=== PATIENT | male | born 1985 | race Caucasian/White ===

== ENCOUNTER 2017-03-24 10:40 | Observation (INO) | payer OTHER ==
[2017-03-24 11:04] VITALS: BMI 27.5
--- NOTE | 2017-03-24 11:31 | PDOC ---
History of Present Illness - General History Source: Patient Exam Limitations: No Limitations - History of Present Illness Initial Comments: 03/24/17 15:07 The patient is a 31 year old male, with no significant past medical history, who presents to the emergency department complaining of right arm swelling and pain for approximately 1 week. The patient reports his pain was initially localized at his right wrist up to his right forearm and it began to swell He reports presenting to Urgent Care earlier today, where he received a CXR, which was negative. Patient reports he was prescribed amoxicillin and 800 mg ibuprofen which mildly relieved his pain. The patient denies any associated erythema, fever, chills, neck or back pain He denies any numbness, tingling, neck pain, back pain. He denies any chest pain, shortness of breath, diaphoresis , or palpitations. 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 Allergies: None reported Past Surgical History: None reported Social History: Marijuana. Denies IV drug use. <Ginger Ortega - Last Filed: 03/24/17 15:07> <Yosef Sutton - Last Filed: 03/24/17 19:52> - General Chief Complaint: Edema Stated Complaint: SWELLING TO LT UPPER LIMB (REFERRED) Time Seen by Provider: 03/24/17 11:09 Past History <Ginger Ortega - Last Filed: 03/24/17 15:07> - Past Medical History Other medical history: NONE - Psycho/Social/Smoking Cessation Hx Anxiety: No Suicidal Ideation: No Smoking History: Current every day smoker Have you smoked in the past 12 months: Yes Number of Cigarettes Smoked Daily: 10 Information on smoking cessation initiated: Yes 'Breaking Loose' booklet given: 03/24/17 Hx Alcohol Use: No Drug/Substance Use Hx: No Substance Use Type: None <Yosef Sutton - Last Filed: 03/24/17 19:52> - Past Medical History Allergies/Adverse Reactions: Allergies Allergy/AdvReac Type Severity Reaction Status Date / Time No Known Allergies Allergy Verified 03/24/17 10:59 Home Medications: Ambulatory Orders Apixaban [Eliquis -] 5 mg PO BID #44 tablet 03/24/17 Review of Systems - Review of Systems Able to Perform ROS?: Yes Comments:: 03/24/17 15:08 CONSTITUTIONAL: No reported: Fever, Chills, Diaphoresis, Generalized Weakness, Malaise, Loss of Appetite HEENT: No reported: Rhinorrhea, Nasal Congestion, Throat Pain, Throat Swelling, Difficulty Swallowing, Mouth Swelling, Ear Pain, Eye Pain, Visual Changes CARDIOVASCULAR: No reported: Chest Pain, Syncope, Palpitations, Irregular Heart Rate, Lightheadedness, Peripheral Edema RESPIRATORY: No reported: Cough, Shortness of Breath, SOB with Exertion, Orthopnea, Wheezing , Stridor, Hemoptysis GASTROINTESTINAL: No reported: Abdominal pain, Abdominal Distension, Nausea, Vomiting, Diarrhea, Constipation, Melena, Hematochezia GENITOURINARY: No reported: Dysuria, Frequency, Urgency, Hesitancy, Flank Pain, Genital Pain MUSCULOSKELETAL: Present: +right arm swelling, +right arm pain No reported: Myalgia, Arthralgia, Joint Swelling, Back pain, Neck Pain SKIN: No reported: Rash, Itching, Pallor HEMEATOLOGIC/IMMUNOLOGIC: No reported: Easy Bleeding, Easy Bruising, Lymphadenopathy, Frequent infections ENDOCRINE: No reported: Unexplained Weight Gain, Unexplained Weight Loss, Heat Intolerance , Cold Intolerance NEUROLOGIC: No reported: Headache, Focal Weakness, Paresthesias, Vertigo, Lightheadedness, Unsteady Gait, Seizure, Mental Status Changes, Incontinence PSYCHIATRIC: No reported: Anxiety, Depression <Ginger Ortega - Last Filed: 03/24/17 15:07> *Physical Exam - Vital Signs Last Vital Signs Temp Pulse Resp BP Pulse Ox 98.2 F 66 18 118/69 100 03/24/17 11:01 03/24/17 11:01 03/24/17 11:01 03/24/17 11:01 03/24/17 11:01 - Physical Exam Comments: 03/24/17 15:08 GENERAL: The patient is awake, alert, and fully oriented, Nontoxic - in no acute distress. HEAD: Normocephalic, atraumatic. EYES: extraocular movements intact, sclera anicteric, conjunctiva clear. ENT: Normal voice, Moist mucous membranes. NECK: Normal range of motion, supple LUNGS: Breath sounds equal, clear to auscultation bilaterally. No wheezes, no rhonchi, no rales. HEART: Regular rate and rhythm, normal S1 and S2 without murmur, rub or gallop. ABDOMEN: Soft, nontender, normoactive bowel sounds. No guarding, no rebound. . No CVA tenderness EXTREMITIES: induration/pitting edmea of RUE from elbow to proximal hand, no redness/warmth, no focal tenderness, n/v intact, no skin wounds/breakdown noted. NEUROLOGICAL: No facial assymetry, Normal speech, moving all 4 extremities spontneously and symmetrically PSYCH: Normal mood, normal affect. SKIN: Warm, Dry, normal turgor. <OrtegaGiomilsy - Last Filed: 03/24/17 15:07> - Vital Signs Last Vital Signs Temp Pulse Resp BP Pulse Ox 98.2 F 66 18 118/69 100 03/24/17 11:01 03/24/17 11:01 03/24/17 11:01 03/24/17 11:01 03/24/17 11:01 <Yosef Sutton - Last Filed: 03/24/17 19:52> Heart Score/ECG Review - ECG Impressions Comment:: 03/24/17 19:51 rate of 47 normal axis normal intervals no st changes suggestive of ischemia sinus bradycardia <Yosef Sutton - Last Filed: 03/24/17 19:52> ED Treatment Course - LABORATORY CBC & Chemistry Diagram: 03/24/17 11:57 03/24/17 12:20 - ADDITIONAL ORDERS Additional order review: Laboratory Results 03/24/17 12:20 Sodium 140 Potassium 5.1 Chloride 106 Carbon Dioxide 28 Anion Gap 6 L BUN 13 Creatinine 0.8 Creat Clearance w eGFR > 60 Random Glucose 91 Calcium 9.2 Total Bilirubin 0.4 AST 23 ALT 21 Alkaline Phosphatase 59 Total Protein 7.6 Albumin 3.7 03/24/17 11:57 RBC 5.00 MCV 95.6 MCHC 33.3 RDW 13.1 MPV 8.9 Neutrophils % 66.1 Lymphocytes % 20.5 Monocytes % 11.1 H Eosinophils % 1.7 Basophils % 0.6 - RADIOLOGY Radiology Studies Ordered: 03/24/17 15:09 EXAM: Duplex vascular US right arm INTERPRETED BY: Dr. Euceda REVIEWED BY: Dr. Sutton IMPRESSION: There is extensive DVT within the right upper extremity. No flow is identified within the axillary and brachial veins. Flow is noted within the internal jugular, subclavian, radial and ulnar veins. Thrombus is also identified within the basilic and cephalic veins. <Ginger Ortega - Last Filed: 03/24/17 15:07> - LABORATORY CBC & Chemistry Diagram: 03/24/17 11:57 03/24/17 12:20 <Yosef Sutton - Last Filed: 03/24/17 19:52> Medical Decision Making - Medical Decision Making 03/24/17 11:58 31y M no pmhx presents with RUE swelling x 1 week without associated numbness/ tingling/weakness/fevers/warmth. 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 pt denies any neck pain/back pain. pt endorses mild pain to the medial elbow region. will obtain basic blood work US to r/o dvt no signs of warmth/erythema/induration to suggest celluitis pt has rx for augmentin by md at urgent care [facility] A portion of this note was documented by scribe services under my direction. I have reviewed the details of the note, within reason, and agree with the documentation with the following case summary and management plan written by me 03/24/17 15:06 pts US noted for DVT unclear cause of his DVT pt states his family is fairly healthy and as far as he k nows ho history of dvt will obtain pt/inr, will give lovenox pt has no PMD, will admit pt for hypercoagulable workup and to start a/c 03/24/17 15:58 case dw BRAND INSPECTOR Smith agree with admission for further management under dr. Fletcher service stable for med surg Case discussed in detail with admitting physician including history, physical exam and ancillary studies. Admitting physician has assumed care for the patient, will follow all pending diagnostics and will complete the evaluation and treatment. <Yosef Sutton - Last Filed: 03/24/17 19:52> *DC/Admit/Observation/Transfer - Attestations Scribe Attestion: 03/24/17 15:08 Documentation prepared by Ginger Ortega, acting as medical insurance verifier for Yosef Sutton MD. <Ginger Ortega - Last Filed: 03/24/17 15:07> - Discharge Dispostion Admit: Yes <Yosef Sutton - Last Filed: 03/24/17 19:52> Diagnosis at time of Disposition: DVT of axillary vein, acute right - Discharge Dispostion Condition at time of disposition: Stable - Prescriptions - Referrals
[2017-03-24 12:17] LABS: BASOPHIL 0.6 % (0-2.0); EOSINOPHIL 1.7 % (0-4.5); MCH 31.8 pg (25.7-33.7); MCHC 33.3 g/dl (32.0-35.9); MEAN CELL VOLUME 95.6 fl (80-96); MEAN PLT VOLUME 8.9 fl (7.5-11.1); NEUTROPHILS 66.1 % (42.8-82.8); PLATELET COUNT 179 K/MM3 (134-434); RDW 13.1 % (11.9-15.9); WHITE BLOOD COUNT 5.6 K/mm3 (4.0-10.0)
[2017-03-24 12:35] LABS: ALBUMIN 3.7 g/dl (3.4-5.0); ALK PHOS 59 U/L (45-117); ANION GAP 6 (8-16); BILIRUBIN,TOTAL 0.4 mg/dL (0.2-1.0); CALCIUM 9.2 mg/dL (8.5-10.1); CO2 28 mmol/L (21-32); CREATININE 0.8 mg/dL (0.7-1.3); GLUCOSE,RANDOM 91 mg/dL (74-106); SGPT/ALT 21 U/L (12-78); TOT PROT 7.6 g/dl (6.4-8.2)
[2017-03-24 12:37] LABS: SGOT/AST 23 U/L (15-37)
[2017-03-24] MEDS ORDERED: ENOXAPARIN NA (PORCINE) 80 MG/0.8 ML DISP.SYRIN SQ SCH ×2 (15:00→15:09)
[2017-03-24] MEDS ORDERED: ENOXAPARIN NA (PORCINE) 80 MG/0.8 ML DISP.SYRIN SQ ONE (15:09)
[2017-03-24] MEDS ORDERED: ENOXAPARIN NA (PORCINE) 100 MG/1 ML DISP.SYRIN SQ ONE ×2 (15:20→15:22)
[2017-03-24 15:41] VITALS: TEMP 98.6
[2017-03-24 16:12] LABS: INR 1.12 (0.82-1.09); PROTHROMBIN TIME (PATIENT) 12.4 SEC (9.98-11.88)
[2017-03-24 16:14] LABS: ACTIVATED PTT 32.2 SECONDS (26.9-34.4)
--- NOTE | 2017-03-24 17:09 | HP ---
CHIEF COMPLAINT: RUE pain and swelling PCP:none HISTORY OF PRESENT ILLNESS: 31yo M c/o RUE pain and swelling x1week. progressively worsening and now it is difficult to move the arm due to the pain. went to urgent care center on Monday and was given amoxicillin and motrin. did not improve so returned to urgent care center where they did CXR which was negative (had report with him) and then he came here. pt denies any trauma to the arm, denies any flights, family history of DVT/PE/CVA. ER course was notable for: (1)lovenox 90mcg (2)duplex-extensive DVT within the right upper extremity. No flow is identified within the axillary and brachial veins. Flow is noted within the internal jugular, subclavian, radial and ulnar veins. Thrombus is also identified within the basilic and cephalic veins. (3) Recent Travel:none PAST MEDICAL HISTORY:none PAST SURGICAL HISTORY:ingunal hernia repair as a child? Social History: Smoking:denies Alcohol:denies Drugs: THC occasionally Family History:denies Allergies No Known Allergies Allergy (Verified 03/24/17 10:59) HOME MEDICATIONS: Home Medications Medication Instructions Recorded Apixaban [Eliquis -] 5 mg PO BID #44 tablet 03/24/17 REVIEW OF SYSTEMS CONSTITUTIONAL: Absent: fever, chills, diaphoresis, generalized weakness, malaise, loss of appetite, weight change HEENT: Absent: rhinorrhea, nasal congestion, throat pain, throat swelling, difficulty swallowing, mouth swelling, ear pain, eye pain, visual changes CARDIOVASCULAR: Absent: chest pain, syncope, palpitations, irregular heart rate, lightheadedness , peripheral edema RESPIRATORY: Absent: cough, shortness of breath, dyspnea with exertion, orthopnea, wheezing, stridor, hemoptysis GASTROINTESTINAL: Absent: abdominal pain, abdominal distension, nausea, vomiting, diarrhea, constipation, melena, hematochezia GENITOURINARY: Absent: dysuria, frequency, urgency, hesitancy, hematuria, flank pain, genital pain MUSCULOSKELETAL: +RUE pain and swelling Absent: myalgia, arthralgia, joint swelling, back pain, neck pain SKIN: Absent: rash, itching, pallor HEMATOLOGIC/IMMUNOLOGIC: Absent: easy bleeding, easy bruising, lymphadenopathy, frequent infections ENDOCRINE: Absent: unexplained weight gain, unexplained weight loss, heat intolerance, cold intolerance NEUROLOGIC: Absent: headache, focal weakness or paresthesias, dizziness, unsteady gait, seizure, mental status changes, bladder or bowel incontinence PSYCHIATRIC: Absent: anxiety, depression, suicidal or homicidal ideation, hallucinations. PHYSICAL EXAMINATION GENERAL: Awake, alert, and fully oriented, in no acute distress. HEAD: Normal with no signs of trauma. EYES: Pupils equal, round and reactive to light, extraocular movements intact, sclera anicteric, conjunctiva clear. No lid lag. EARS, NOSE, THROAT: Ears normal, nares patent, oropharynx clear without exudates. Moist mucous membranes. NECK: Normal range of motion, supple without lymphadenopathy, JVD, or masses. LUNGS: Breath sounds equal, clear to auscultation bilaterally. No wheezes, and no crackles. No accessory muscle use. HEART: Regular rate and rhythm, normal S1 and S2 without murmur, rub or gallop. ABDOMEN: Soft, nontender, not distended, normoactive bowel sounds, no guarding, no rebound, no masses. No hepatomegaly or splenomegaly. MUSCULOSKELETAL: Normal range of motion at all joints. No bony deformities or tenderness. No CVA tenderness. UPPER EXTREMITIES: 2+ pulses, warm, well-perfused. No cyanosis. No clubbing. RUE swelling from elbow to dorsum of hand assoc with tenderness. full ROM of digits, limited supination/pronation due to pain. pulse intact LOWER EXTREMITIES: 2+ pulses, warm, well-perfused. No calf tenderness. No peripheral edema. NEUROLOGICAL: Cranial nerves II-XII intact. Normal speech. Normal gait. PSYCHIATRIC: Cooperative. Good eye contact. Appropriate mood and affect. SKIN: Warm, dry, normal turgor, no rashes or lesions noted, normal capillary refill. ASSESSMENT/PLAN: 31yo M with no PMH presented to the ER with RUE swelling and pain 1. RUE DVT- received lovenox 90mg x1 in the ER. will start on eliquis 10mg po bid x7 days then 5mg po bid. explained in detail with Yemeni lockstitch cup setter the importance to take medication as instruction. risks as this increases risk for bleeding. to avoid ETOH, avoid NSAIDS. importance of following up with PMD for further hypercoagability workup. pt requested referral to Yemeni speaking physician. Visit type - Emergency Visit Emergency Visit: Yes ED Registration Date: 03/24/17 Care time: The patient presented to the Emergency Department on the above date and was hospitalized for further evaluation of their emergent condition. - New Patient This patient is new to me today: Yes Date on this admission: 03/24/17 - Critical Care Critical Care patient: No
--- NOTE | 2017-03-24 17:14 | DS ---
Physical Exam: SUBJECTIVE: Patient seen and examined. mild pain in RUE. denies CP, SOB,fever, chills, hemoptysis, N/V/C/D OBJECTIVE: PHYSICAL EXAM GENERAL: The patient is awake, alert, and fully oriented, in no acute distress. HEAD: Normal with no signs of trauma. EYES: PERRL, extraocular movements intact, sclera anicteric, conjunctiva clear. ENT: Ears normal, nares patent, oropharynx clear without exudates, moist mucous membranes. NECK: Trachea midline, full range of motion, supple. LUNGS: Breath sounds equal, clear to auscultation bilaterally, no wheezes, no crackles, no accessory muscle use. HEART: Regular rate and rhythm, S1, S2 without murmur, rub or gallop. ABDOMEN: Soft, nontender, nondistended, normoactive bowel sounds, no guarding, no rebound, no hepatosplenomegaly, no masses. EXTREMITIES: 2+ pulses, warm, well-perfused, RUE swelling from elbow to dorsum of hand assoc with tenderness. full ROM of digits, limited supination/pronation due to pain. pulse intact NEUROLOGICAL: Cranial nerves II through XII grossly intact. Normal speech, gait not observed. PSYCH: Normal mood, normal affect. SKIN: Warm, dry, normal turgor, no rashes or lesions noted. LABS HOSPITAL COURSE: Date of Admission:03/24/17 Date of Discharge: 03/24/17 Admitting Diagnosis: RUE DVT, unprovoked pre hospital course 31yo M c/o RUE pain and swelling x1week. progressively worsening and now it is difficult to move the arm due to the pain. went to urgent care center on Monday and was given amoxicillin and motrin. did not improve so returned to urgent care center where they did CXR which was negative (had report with him) and then he came here. pt denies any trauma to the arm, denies any flights, family history of DVT/PE/CVA. Subsequent hospital course evaluated pt in the ER. discussed with him in great detail about initiation of eliquis as well as risk/benefits of medication, with Bah[place]ian change director. discussed importance of medication compliance and follow up with PMD next week. Explained need for hypercoagability to work up. pt verbalized understanding and agreement. felt comfortable going home and will call for appt for PMD on monday to establish care. Minutes to complete discharge: 40 Discharge Summary Reason For Visit: DVT OF AXILLARY VEIN ACUTE RIGHT Current Active Problems DVT of axillary vein, acute right (Acute) Condition: Stable - Instructions Diet, Activity, Other Instructions: You were found to have a clot in your Right arm. You are being started on a medication that will thin your blood. it is important that you take this medication twice a day. Start with taking 2 tablets twice a day for 1 week then take only 1 tablet by mouth twice a day. You will need to take this medication for a minimum of 3 months. Follow up with primary care doctor for refills. This medication will put you at an increased risk for bleeding. DO not drink alcohol while on this medication as can increase your risk of bleeding. Avoid aspirin, ibuprofen, alieve or other NSAID like products while on this medication. Information on a primary care doctor has been provided. It is important that you call his office on monday to schedule an appointment. It is very important that you follow up with a doctor to continue this medication. Also you will need a work up for why you develop this clot. If you develop chest pain or shortness of breath return to the ER Referrals: STAFF,NOT ON [Primary Care Provider] - Twin Deleon MD [Staff Physician] - Disposition: HOME - Home Medications Comprehensive Discharge Medication List: Ambulatory Orders Apixaban [Eliquis -] 5 mg PO BID #44 tablet 03/24/17 Problem List - Problems (1) DVT of axillary vein, acute right Code(s): I82.A11 - ACUTE EMBOLISM AND THROMBOSIS OF RIGHT AXILLARY VEIN This patient is new to me today: Yes Date on this admission: 03/24/17 Emergency Visit: Yes ED Registration Date: 03/24/17 Care time: The patient presented to the Emergency Department on the above date and was hospitalized for further evaluation of their emergent condition. Critical Care patient: No - Discharge Referral Referred to [facility] No
[2017-03-24 17:49] VITALS: BP 121/73; PULSE 68
--- NOTE | 2017-03-25 11:17 | EKG ---
Test Reason : Blood Pressure : / mmHG Vent. Rate : 047 BPM Atrial Rate : 047 BPM P-R Int : 158 ms QRS Dur : 098 ms QT Int : 490 ms P-R-T Axes : 037 049 047 degrees QTc Int : 433 ms SINUS BRADYCARDIA OTHERWISE NORMAL ECG NO PREVIOUS ECGS AVAILABLE Confirmed by CHIO GUZMÁN MD ([id number]) on 03/25/2017 11:17:22 AM Referred By: Confirmed By:CHIO GUZMÁN MD
== END 2017-03-24 17:48 | disposition home or self-care (01) ==
LOC: JER 10:40 → JERBED 15:57 → INTOOBSV 15:57
PROVIDERS: ADMIT Internal Medicine; ATTEND Internal Medicine
PROC: 3E033GC Introduction of Other Therapeutic Substance into Peripheral Vein, Percutaneous Approach (ICD-10-PCS; principal; 2017-03-24)
DX: I82.A11 Acute embolism and thrombosis of right axillary vein (principal); F17.210 Nicotine dependence, cigarettes, uncomplicated
CPT/HCPCS: 36415; 80053; 85025; 85610; 85730; 93005; 93010; 93971; 99283-25; G0378

== ENCOUNTER 2023-06-04 08:23 | Inpatient (IN) | payer OTHER ==
[2023-06-04] MEDS ORDERED: ACETAMINOPHEN 1000 MG/100 ML BAG IVPB ONE (09:20)
[2023-06-04] MEDS ORDERED: SODIUM CHLORIDE 0.9% 500 ML INFUS.BAG IV ONE (09:20)
[2023-06-04] MEDS ORDERED: ACETAMINOPHEN INJECTION 100 ML IVPB ONE ×2 (09:45→22:29)
[2023-06-04 10:28] LABS: BASO % 0.3 % (0-2.0); EOS % 0.5 % (0-4.5); HEMOGLOBIN 15.5 GM/dL (11.7-16.9); LYMPH % 10.6 % (8-40); MCH 30.9 pg (25.7-33.7); MCHC 34.4 g/dl (32.0-35.9); MEAN CELL VOLUME 89.7 fl (80-96); MEAN PLT VOLUME 8.4 fl (7.5-11.1); MONO % 12.7 % (3.8-10.2); NEUT % 75.9 % (42.8-82.8); PLATELET COUNT 177 10^3/uL (134-434); RBC 5.01 M/mm3 (4.00-5.60); RDW 14.4 % (11.9-15.9); WHITE BLOOD COUNT 8.2 K/mm3 (4.0-10.0)
[2023-06-04 10:33] LABS: INR 1.23 (0.83-1.09); PROTHROMBIN TIME (PATIENT) 14.2 SEC (9.7-13.0)
[2023-06-04 10:36] LABS: ACTIVATED PTT 30.4 SECONDS (25.2-36.5)
[2023-06-04 10:45] LABS: POTASSIUM 4.4 mmol/L (3.5-5.1)
[2023-06-04 10:47] LABS: CALCIUM 9.3 mg/dL (8.5-10.1)
[2023-06-04 10:48] LABS: ALBUMIN 3.8 g/dl (3.4-5.0)
[2023-06-04 10:51] LABS: CREATININE 0.8 mg/dL (0.55-1.3)
[2023-06-04 10:52] LABS: BILIRUBIN,TOTAL 0.6 mg/dL (0.2-1)
[2023-06-04] MEDS ORDERED: KETOROLAC TROMETHAMINE 30 MG/1 ML VIAL IVPUSH ONE (10:58)
[2023-06-04] MEDS ORDERED: KETOROLAC TROMETHAMINE 30 MG/1 ML VIAL ONE (11:10)
[2023-06-04] MEDS ORDERED: HEPARIN NA (PORCINE) 5,000 UNITS/ML 1ML VIAL IVPUSH ONE (13:02)
[2023-06-04] MEDS ORDERED: HEPARIN NA (PORCINE) 5,000 UNITS/ML 1ML VIAL IVPUSH PRN ×2 (13:03)
[2023-06-04] MEDS ORDERED: PIPERACILLIN/TAZOB 4.5 GM 4.5 GM in DEXTROSE 5%-WATER 100 ML IVPB ONE (13:58)
[2023-06-04] MEDS ORDERED: VANCOMYCIN 1,000 MG in DEXTROSE 5%-WATER - 250 ML IVPB ONE (13:58)
[2023-06-04] MEDS ORDERED: PIPERACILLIN/TAZOB 4.5 GM 4.5 GM/100 ML BAG IVPB ONE (14:56)
[2023-06-04] MEDS ORDERED: VANCOMYCIN 1 GRAM (PRE-DOCKED) 1,000 MG/250 ML BAG IVPB ONE (14:56)
[2023-06-04] MEDS ORDERED: HEPARIN NA (PORCINE) 5,000 UNITS/ML 1ML VIAL ONE ×2 (16:11→22:29)
[2023-06-04] MEDS ORDERED: HEPARIN INFUSION - 25,000 UNITS/500 ML INFUS.BAG IVPB ONE (16:11)
[2023-06-04] MEDS: HEPARIN INFUSION - 25,000 UNITS/500 ML INFUS.BAG IVPB SCH (16:21)
[2023-06-04 22:12] LABS: INR 1.34 (0.83-1.09); PROTHROMBIN TIME (PATIENT) 15.5 SEC (9.7-13.0)
[2023-06-04 22:14] LABS: ACTIVATED PTT 44.6 SECONDS (25.2-36.5)
[2023-06-04] MEDS: ACETAMINOPHEN 1000 MG/100 ML BAG IVPB PRN (22:38)
[2023-06-05] MEDS ORDERED: ACETAMINOPHEN INJECTION 100 ML IVPB ONE ×2 (04:08→15:58)
[2023-06-05] MEDS: ACETAMINOPHEN 1000 MG/100 ML BAG IVPB PRN ×2 (04:14→16:04)
[2023-06-05 08:14] LABS: BASO % 0.2 % (0-2.0); EOS % 0.3 % (0-4.5); HEMATOCRIT 41.7 % (35.4-49); LYMPH % 12.6 % (8-40); MCH 30.5 pg (25.7-33.7); MCHC 33.5 g/dl (32.0-35.9); MEAN PLT VOLUME 9.7 fl (7.5-11.1); MONO % 13.1 % (3.8-10.2); NEUT % 73.8 % (42.8-82.8); PLATELET COUNT 159 10^3/uL (134-434); RBC 4.58 M/mm3 (4.00-5.60); RDW 13.5 % (11.9-15.9)
[2023-06-05 08:41] LABS: BLOOD UREA NITROGEN 7.6 mg/dL (7-18); CALCIUM 8.8 mg/dL (8.5-10.1)
[2023-06-05 08:42] LABS: ALBUMIN 3.2 g/dl (3.4-5.0)
[2023-06-05 08:44] LABS: CREATININE 0.5 mg/dL (0.55-1.3)
[2023-06-05 08:46] LABS: BILIRUBIN,TOTAL 0.8 mg/dL (0.2-1)
[2023-06-05] MEDS ORDERED: AZITHROMYCIN IVPB 500 MG/250 ML BAG IVPB ONE (09:33)
[2023-06-05] MEDS ORDERED: CEFTRIAXONE 1 GM/50 ML BAG ONE (09:33)
[2023-06-05] MEDS: CEFTRIAXONE 1 GM in DEXTROSE 5%-WATER - 50 ML IVPB SCH (09:49)
[2023-06-05] MEDS: AZITHROMYCIN IVPB 500 MG/250 ML BAG IVPB SCH (09:49)
[2023-06-05] MEDS ORDERED: HEPARIN NA (PORCINE) 5,000 UNITS/ML 1ML VIAL IVPUSH ONE (13:52)
[2023-06-05] MEDS ORDERED: HEPARIN NA (PORCINE) 5,000 UNITS/ML 1ML VIAL ONE (13:56)
[2023-06-05] MEDS: HEPARIN INFUSION - 25,000 UNITS/500 ML INFUS.BAG IVPB SCH (14:00)
[2023-06-05] MEDS ORDERED: HEPARIN INFUSION - 25,000 UNITS/500 ML INFUS.BAG IVPB ONE (15:58)
[2023-06-05] MEDS ORDERED: ACETAMINOPHEN 500 MG TABLET (FP) PO ONE (21:21)
[2023-06-05 22:51] VITALS: BMI 25.3
[2023-06-05] MEDS: HEPARIN NA (PORCINE) 5,000 UNITS/ML 1ML VIAL IVPUSH PRN (23:05)
[2023-06-06] MEDS ORDERED: ACETAMINOPHEN 1000 MG/100 ML BAG IVPB PRN (06:11)
[2023-06-06 06:37] VITALS: RESP 18
[2023-06-06] MEDS: HEPARIN NA (PORCINE) 5,000 UNITS/ML 1ML VIAL IVPUSH PRN ×2 (08:00→13:59)
[2023-06-06 08:25] LABS: HEMATOCRIT 45.1 % (35.4-49); HEMOGLOBIN 15.3 GM/dL (11.7-16.9); MCH 30.9 pg (25.7-33.7); MCHC 33.9 g/dl (32.0-35.9); MEAN CELL VOLUME 91.3 fl (80-96); MEAN PLT VOLUME 9.8 fl (7.5-11.1); PLATELET COUNT 195 10^3/uL (134-434); RBC 4.94 M/mm3 (4.00-5.60); WHITE BLOOD COUNT 7.9 K/mm3 (4.0-10.0)
[2023-06-06] MEDS: AZITHROMYCIN IVPB 500 MG/250 ML BAG IVPB SCH (10:07)
[2023-06-06] MEDS: CEFTRIAXONE 1 GM in DEXTROSE 5%-WATER - 50 ML IVPB SCH (10:07)
[2023-06-06] MEDS: HEPARIN INFUSION - 25,000 UNITS/500 ML INFUS.BAG IVPB SCH (13:54)
[2023-06-06] MEDS ORDERED: APIXABAN 5 MG TABLET PO ONE (17:58)
[2023-06-06 18:48] VITALS: BP 126/78; PULSE 78; TEMP 98.9
[2023-06-08 19:09] LABS: DRVVT - 40.1 sec (0.0-47.0); HEXAGONAL PHASE PHOSPHOLIPID 7 sec (0-11)
== END 2023-06-06 19:57 | disposition home or self-care (01) | DRG 134 ==
LOC: JER 08:23 → JERBED 14:14 → J4W 06-05 19:23
PROVIDERS: ADMIT Internal Medicine; ATTEND Internal Medicine
DX: I26.99 Other pulmonary embolism without acute cor pulmonale (principal); J18.9 Pneumonia, unspecified organism; F17.210 Nicotine dependence, cigarettes, uncomplicated; R00.0 Tachycardia, unspecified; Z86.718 Personal history of other venous thrombosis and embolism; L73.2 Hidradenitis suppurativa
CPT/HCPCS: 0241U-QW; 36415; 71045-TC-FY; 71275-TC; 80053; 84484; 85025; 85027; 85379; 85610; 85613; 85730; 85732; 87040; 87070; 87205; 87899; 93005; 93010; 93306-TC; 93970-TC; 94010; 99291; J1644